=== PATIENT | male | born 1970 | race Hispanic/Latino ===

== ENCOUNTER → 2018-06-28 | Day surgery (SDC) | payer BC ==
[2018-06-17 11:15] LABS: BASOPHILS % 0.8 % (0.0-1.0); EOSINOPHILS # (AUTO) 0.2 (0.0-0.4); EOSINOPHILS % 3.6 % (0.0-6.0); HEMOGLOBIN 13.2 g/dL (14.0-18.0); LYMPHOCYTES # (AUTO) 1.6 (1.0-3.2); LYMPHOCYTES % 31.3 % (18.0-39.1); MEAN CORPUSCULAR HEMOGLOBIN 24.6 pg (28-32); MEAN CORPUSCULAR HGB CONC 31.4 g/dL (31-35); MEAN CORPUSCULAR VOLUME 78.4 fL (81-99); MONOCYTES # (AUTO) 0.4 (0.2-0.8); MONOCYTES % 8.2 % (4.4-11.3); NEUTROPHILS # (AUTO) 2.8 (2.1-6.9); NEUTROPHILS % 55.7 % (38.7-80.0); PLATELET COUNT 200 x10e3/uL (140-360); RED BLOOD COUNT 5.36 x10e6/uL (4.3-5.7)
[2018-06-17 11:29] LABS: ANION GAP 15.1 mmol/L (8-16); BLOOD UREA NITROGEN 14 mg/dL (7-26); BUN/CREATININE RATIO 16 (6-25); CALCIUM 9.1 mg/dL (8.4-10.2); CARBON DIOXIDE 27 mmol/L (22-29); CHLORIDE 104 mmol/L (98-107); CREATININE, SERUM 0.85 mg/dL (0.72-1.25); EST GLOMERULAR FILTRATION RATE > 60 ML/MIN (60-); GLUCOSE 139 mg/dL (74-118); POTASSIUM 4.1 mmol/L (3.5-5.1); SODIUM 142 mmol/L (136-145)
[~2018-06-28] MED LIST: BUPIVACAINE 0.25%/EPI 30ML SDV INJ ONE; COZAAR100 MG PO; CRESTOR PO; CRESTOR10 MG PO; FENTANYL CITRATE/PF 100MCG/2 ML INJ ONE; HYDROCODONE/APAP 7.5MG-325MG 1 EA TAB ONE; LIDOCAINE HCL 2% LOCAL INJ 5 ML SDV VIAL INJ ONE; METFORMIN HCL500 MG PO; METFORMIN HCL850 MG PO; METFORMIN PO; MIDAZOLAM HCL 2 MG/2 ML VIAL ONE; NEOSTIGMINE 1 MG/ML 10ML VIAL ONE; NORCO 10MG-325MG1 EA PO; ONDANSETRON HCL INJ 2 MG/ML VIAL ONE; PANTOPRAZOLE PO; PANTOPRAZOLE SO40 MG PO; PROPOFOL IV EMULSION 10 MG/ML 20 ML VIAL ONE; ROCURONIUM BROMIDE 10 MG/ML 5ML VIAL ONE; SEVOFLURANE INHAL SOLN 250 ML PEN BTL ONE; SOMA350 MG PO; TRICOR PO; TRICOR145 MG PO
[2018-06-28 11:20] VITALS: BP 140/72
--- NOTE | 2018-06-28 13:39 | Operative Report ---
DATE OF PROCEDURE: June 28, 2018 PREOPERATIVE DIAGNOSIS: Large mass of the left occipital scalp area. POSTOPERATIVE DIAGNOSIS: Large mass of the left occipital scalp area. OPERATION PERFORMED: Resection of large mass of the left occipital area. ANESTHESIA: General. COMPLICATIONS: None. ESTIMATED BLOOD LOSS: 25 mL. DESCRIPTION OF PROCEDURE: With the patient lying in bed in the lateral position under good general endotracheal anesthesia, the scalp and neck were prepped with Hibiclens solution and draped in the usual manner. The area overlying the large mass in the left occipital area was then infiltrated with 0.25% Marcaine with epinephrine and incision was made. It was carried down through the skin into the subcutaneous tissue and immediately poorly encapsulated mass was encountered that extended all the way down to the muscle and in some areas, was actually stuck to the occipital bone. The mass was slowly and carefully from the subcutaneous tissue and then slowly and carefully from the muscle and bone and totally and completely removed. Hemostasis was ascertained. The mass was at least 4 x 4 cm in size. The whole area was thoroughly irrigated. Perfect hemostasis was then ascertained. The subcutaneous tissue was then reapproximated with interrupted sutures of 3-0 Vicryl and the skin was closed with interrupted vertical mattress sutures of 3-0 silk. A dressing was applied. The sponge, lap and needle count was correct. The patient tolerated the procedure well and returned to the recovery room in stable condition. Job#: [id number] GHASSAN
--- OUTSIDE RECORDS SUMMARY | 2018-07-02 13:16 | XMS REPORT | Summary of Care ---
Author Author [facility] [place] Organization [facility] [place] Address Unknown Phone Unavailable Encounter HQ Trentntr_maria esther(FIN) [id number] Date(s): 07/27/17 - 07/27/17 [facility] [place] [address] [place] [address] [phone] Discharge Disposition: Home or Self Care Attending Physician: Hanny Jones MD Vital Signs No data available for this section Problem List Condition Effective Dates Status Health Status Informant Laceration of Active spleen(Confirmed) Multiple fractures Active of ribs(Confirmed) Pain(Confirmed) Active Allergies, Adverse Reactions, Alerts Substance Reaction Severity Status NKDA Active Medications No data available for this section Results No data available for this section Immunizations Given and Recorded Vaccine Date Status Refusal Reason tetanus-diphtheria toxoids 10/15/10 Given Procedures No data available for this section Social History No data available for this section Assessment and Plan No data available for this section
--- OUTSIDE RECORDS SUMMARY | 2018-07-02 13:16 | XMS REPORT | CCD ---
Author Author Auto Generated Organization [facility] [address] Outpatient [facility] Address Unknown Phone Unavailable Care Team Providers Care Mess Attendant Crew Name Role Phone KarenHanny pradhan CP Allergies, Adverse Reactions, Alerts Substance Reaction Status NKDA Active Problem List Condition Effective Dates Status Hematuria < 10/21/2010 Inactive Laceration of spleen Active Multiple fractures of ribs Active Pain Active Medications Medication Instructions Start Date End Date Status tetanus-diphtheria 0.5 ml, Route: IM, Drug Form: INJ, 10/15/2010 10/15/2010 Completed toxoids adult ONCE, STAT, Start date: 10/15/10 intramuscular 19:32:00, Stop date: 10/15/10 suspension 19:32:00 Immunizations Vaccine Date Status tetanus-diphtheria toxoids 10/15/2010 Auth (Verified)
--- OUTSIDE RECORDS SUMMARY | 2018-07-02 13:16 | XMS REPORT | Continuity of Care Document ---
Author Author Margarita elías [facility] Address Unknown Phone Unavailable Problems Problem Status Onset Date Classification Date Reported Comments Source E78.2 - MIXED HYPERLIPIDEMIA Active 07/26/2017 [facility] [place] 784.0 - HEADACHE 401.9 - HYPERTENSION NO Active 10/01/2012 [facility] [place] Laceration of spleen Active Problem 07/30/2017 [facility] [place] Multiple fractures of ribs Active Problem 07/30/2017 [facility] [place] Pain Active Problem 07/30/2017 [facility] [place] Hematuria Inactive Problem 10/09/2012 [facility] [place] Laceration of spleen Active Problem 10/09/2012 [facility] [place] Multiple fractures of ribs Active Problem 10/09/2012 [facility] [place] Pain Active Problem 10/09/2012 [facility] [place] Medications Medication Details Route Status Patient Instructions Ordering Provider Order Date Source tetanus-diphtheria toxoids adult intramuscular suspension 0.5 ml, Route: IM, Drug Form: INJ, ONCE, STAT, Start date: 10/15/10 19:32:00, Stop date: 10/15/10 19:32:00 IM No Longer Active Cristia 10/16/2010 [facility] [place] Allergies, Adverse Reactions, Alerts Substance Category Reaction Severity Reaction type Status Date Reported Comments Source Immunizations Immunization Date Given Site Status Last Updated Comments Source tetanus-diphtheria toxoids 10/16/2010 Right Deltoid completed Alvaro [facility] [place] tetanus-diphtheria toxoids 10/16/2010 Right Deltoid completed Alvaro [facility] [place] tetanus-diphtheria toxoids 10/16/2010 completed Alvaro [facility] [place] Results Order Name Results Value Reference Range Date Interpretation Comments Source Abdomen complete US Abdomen complete US Exam: Abdominal Ultrasound Reason for Exam: R10.84 Generalized abdominal pain - R10.84 Generalized abdominal pain. Abnormal blood work. Comparison Exam: Ultrasound 03/22/[address] scan 10/19/2010 Discussion: Multiple axial and sagittal images were obtained of the abdomen. Liver is slightly enlarged. It is of increased echogenicity suggestive of diffuse fatty infiltration. No focal hepatic masses identified. No intrahepatic or extrahepatic biliary duct dilation, with the common bile duct measuring 0.3 cm. No gallstones or gallbladder sludge. No gallbladder wall thickening or pericholecystic fluid. Sonographic Mendoza's sign is negative. The visualized portions of the pancreatic head and proximal body are within normal limits. The spleen is of normal echogenicity measuring 8.8 cm in length. The visualized portions of the upper abdominal aorta and IVC are unremarkable. No evidence seen for ascites. The right kidney measures 10.9 x 6.2 x 4.9 cm. It is of unremarkable echogenicity without evidence for focal masses, hydronephrosis, or shadowing renal calculi. The left kidney measures 12.0 x 5.7 x 4.7 cm. It is of unremarkable echogenicity without evidence for focal masses, hydronephrosis, or shadowing renal calculi. Impression: 1. Liver is slightly enlarged. It is of increased echogenicity suggestive of diffuse fatty infiltration. The gallbladder and biliary ductal system are unremarkable. 07/27/2017 - - Read by: Kyler Holt MD Dictated Date/time: 07/27/17 10:48 Electronically Signed by: Kyler Holt MD 07/27/17 11:10 FINAL REPORT MIKA Padilla Spine cervical wo contrast MRI Spine cervical wo contrast MRI CERVICAL SPINE MRI CLINICAL HISTORY: Neck pain, left upper extremity paresthesia, status post ACDF, and displacement of cervical intervertebral disc. TECHNIQUE: Multiplanar, multisequence MR images were acquired without IV contrast. COMPARISON IMAGIN10/15/2010 CT. FINDINGS: The patient is status post C5-C6 ACDF without obvious complication. Complete intervertebral fusion is again noted. Vertebral body height, alignment, and marrow signal are within normal limits. All intervertebral discs are at least mildly desiccated. Spinal cord signal appears grossly preserved. Location- specific findings are as follows: C2-C3: Small broad-based disc bulge with bilateral facet hypertrophy (moderate on the left and mild to moderate on the right). The left neural foramina is severely narrowed, while the right neural foramina is mildly narrowed. Canal is patent. C3-C4: Moderate-sized broad-based posterior disc osteophyte complex, mild bilateral uncovertebral joint hypertrophy, and moderate bilateral facet hypertrophy. Both neural foramina are moderate to severely narrowed, left greater than right. Maximal AP dimension of the spinal canal is 9 mm. C4-C5: Moderate-sized broad-based posterior disc osteophyte complex, moderate bilateral uncovertebral joint hypertrophy, severe left facet hypertrophy, and mild right facet hypertrophy. The left neural foramina is severely narrowed, and the right neural foramina is moderately narrowed. The posterior disc osteophyte complex contacts but does not flatten the spinal cord. Maximal AP dimension of the spinal canal is 8 to 9 mm. C5-C6: Bony fusion at the left uncovertebral joint moderately narrows the left neural foramina. Canal and right neural foramina are patent. C6-C7: Loss of disc height, severe bilateral uncovertebral joint hypertrophy, large broad-based disc bulge, and mild bilateral facet hypertrophy. Maximal AP dimension of the spinal canal is approximately 9 mm. The left neural foramina is severely narrowed, and the right neural foramina is moderately narrowed. C7-T1: Mild bilateral facet hypertrophy. Canal and neural foramina are patent. IMPRESSION: 1. Status post ACDF. 2. Moderate multilevel degenerative changes, most prominent at C4-C5 and C6-C7. 3. Multilevel canal and neural foraminal stenosis, detailed above. 04/28/2014 - - Read by: Jung Hagan MD Dictated Date/time: 04/28/14 12:17 Electronically Signed by: Jung Hagan MD 04/28/14 12:26 FINAL REPORT [facility] [place] Vital Signs Vital Sign Value Date Comments Source Encounters Location Location Details Encounter Type Encounter Number Reason For Visit Attending Provider ADM Date DC Date Status Source OD [id number] 784.0 - HEADACHE 401.9 - HYPERTENSION NO 272.0 - PURE H GUILHERME JULES 10/07/2012 Active [facility] [place] [facility] [place] [facility] [id number] Guilherme Jules 04/28/2014 04/29/2014 [facility] [place] [facility] [place] [facility] [id number] Guilherme Jules 07/27/2017 07/28/2017 [facility] [place] Procedures Procedure Code Date Perfomer Comments Source
--- OUTSIDE RECORDS SUMMARY | 2018-07-02 13:16 | XMS REPORT | Summary of Care ---
Author Organization Unknown Address Unknown Phone Unavailable Encounter HQ Encntr_karieubaldo(FIN) [id number] Date(s): 04/28/14 - 04/28/14 [facility] [address] [address] [place] Discharge Disposition: Home Physician Attending: Hanny Jones MD Reason for Visit 795.05 - CERVICAL (HPV) Problem List Condition Effective Dates Status Health Status Informant Laceration of Active spleen(Confirmed) Multiple fractures Active of ribs(Confirmed) Pain(Confirmed) Active Allergies, Adverse Reactions, Alerts Substance Reaction Severity Status NKDA Active Medications No data available for this section Medications Administered During Your Visit No data available for this section Immunizations Vaccine Date Refusal Reason tetanus-diphtheria toxoids 10/15/10
== END | disposition home or self-care (01) ==
LOC: OR 06:15
PROVIDERS: ATTEND Surgery
DX: D17.79 Benign lipomatous neoplasm of other sites (principal); E11.9 Type 2 diabetes mellitus without complications; I10 Essential (primary) hypertension; K21.9 Gastro-esophageal reflux disease without esophagitis; Z01.810 Encounter for preprocedural cardiovascular examination; Z01.812 Encounter for preprocedural laboratory examination; Z79.84 Long term (current) use of oral hypoglycemic drugs
CPT/HCPCS: 21014; 36415 ×2; 80048; 82948; 85025; 88304; 93005; J2001; J2250; J2405; J2710

== ENCOUNTER → 2019-03-13 | Day surgery (SDC) | payer BC ==
[~2019-03-13] MED LIST changes: -BUPIVACAINE 0.25%/EPI 30ML SDV INJ ONE; -HYDROCODONE/APAP 7.5MG-325MG 1 EA TAB ONE; +IOPAMIDOL 200 MG/ML 20 ML VIAL IT ONE; +LIDOCAINE HCL 1% 30ML-PF VIAL ONE; -NEOSTIGMINE 1 MG/ML 10ML VIAL ONE; -ONDANSETRON HCL INJ 2 MG/ML VIAL ONE; -ROCURONIUM BROMIDE 10 MG/ML 5ML VIAL ONE; -SEVOFLURANE INHAL SOLN 250 ML PEN BTL ONE; +TRIAMCINOLONE ACET 40 MG/ML VIAL ONE
[2019-03-13 07:25] VITALS: BP 138/94
== END | disposition home or self-care (01) ==
LOC: OR 05:00
PROVIDERS: ATTEND Physical Medicine & Rehabilitation Pain Medicine
DX: M47.896 Other spondylosis, lumbar region (principal); Z98.1 Arthrodesis status; I10 Essential (primary) hypertension; E78.5 Hyperlipidemia, unspecified; E78.00 Pure hypercholesterolemia, unspecified; E11.9 Type 2 diabetes mellitus without complications; K21.9 Gastro-esophageal reflux disease without esophagitis; Z01.810 Encounter for preprocedural cardiovascular examination; Z79.84 Long term (current) use of oral hypoglycemic drugs
CPT/HCPCS: 36415; 64493; 64494; 64495; 82948; 93005; J2001 ×2; J2250; J2704; J3010; J3301; Q9967; 77003

== ENCOUNTER → 2019-05-22 | Day surgery (SDC) | payer BC ==
[~2019-05-22] MED LIST changes: +DEXAMETHASONE SOD PHOS 10 MG/1 ML VIAL ONE; -TRIAMCINOLONE ACET 40 MG/ML VIAL ONE
[2019-05-22 09:00] VITALS: BP 116/76
== END | disposition home or self-care (01) ==
LOC: OR 06:22
PROVIDERS: ATTEND Physical Medicine & Rehabilitation Pain Medicine
DX: M54.16 Radiculopathy, lumbar region (principal); M47.896 Other spondylosis, lumbar region; M79.18 Myalgia, other site; Z98.1 Arthrodesis status; R93.7 Abnormal findings on diagnostic imaging of other parts of musculoskeletal system; I10 Essential (primary) hypertension; E78.5 Hyperlipidemia, unspecified; E11.9 Type 2 diabetes mellitus without complications; K21.9 Gastro-esophageal reflux disease without esophagitis; Z79.84 Long term (current) use of oral hypoglycemic drugs
CPT/HCPCS: 36415; 64483; 64484 ×2; 82948; J1100; J2001 ×2; J2250; J2704; J3010; Q9967; 77003

== ENCOUNTER → 2020-10-14 | Day surgery (SDC) | payer BC ==
[~2020-10-14] MED LIST changes: +BUPIVACAINE 0.25% 30ML SDV ONE; +CYCLOBENZAPRINE10 MG PO; +IRBESARTAN150 MG PO; +JANUVIA50 MG PO; -LIDOCAINE HCL 2% LOCAL INJ 5 ML SDV VIAL INJ ONE; +MOBIC7.5 MG PO; +OMEPRAZOLE40 MG PO; +TYLENOL # 31 EA PO
[2020-10-14 07:44] VITALS: BP 137/94
== END | disposition home or self-care (01) ==
LOC: OR 05:20
PROVIDERS: ATTEND Physical Medicine & Rehabilitation Pain Medicine
DX: M54.16 Radiculopathy, lumbar region (principal); M47.812 Spondylosis without myelopathy or radiculopathy, cervical region; M70.61 Trochanteric bursitis, right hip; M46.1 Sacroiliitis, not elsewhere classified; Z98.1 Arthrodesis status; E78.00 Pure hypercholesterolemia, unspecified; I10 Essential (primary) hypertension; E11.9 Type 2 diabetes mellitus without complications; K21.9 Gastro-esophageal reflux disease without esophagitis; K44.9 Diaphragmatic hernia without obstruction or gangrene; Z01.810 Encounter for preprocedural cardiovascular examination; Z79.84 Long term (current) use of oral hypoglycemic drugs; Z86.16 Personal history of COVID-19
CPT/HCPCS: 36415; 64483; 64484 ×2; 82948; 93005; J1100; J2001; J2704; Q9967; 77003; J2250; J3010

== ENCOUNTER → 2020-10-28 | Day surgery (SDC) | payer BC ==
[~2020-10-28] MED LIST changes: -BUPIVACAINE 0.25% 30ML SDV ONE
[2020-10-28 07:20] VITALS: BP 124/82
== END | disposition home or self-care (01) ==
LOC: OR 05:23
PROVIDERS: ATTEND Physical Medicine & Rehabilitation Pain Medicine
DX: M54.16 Radiculopathy, lumbar region (principal); M46.1 Sacroiliitis, not elsewhere classified; M70.61 Trochanteric bursitis, right hip; Z98.1 Arthrodesis status; I10 Essential (primary) hypertension; E11.9 Type 2 diabetes mellitus without complications; E78.00 Pure hypercholesterolemia, unspecified; K21.9 Gastro-esophageal reflux disease without esophagitis; Z86.16 Personal history of COVID-19
CPT/HCPCS: 36415; 64483; 64484; 82948; J1100; J2001; J2250; J2704; J3010; Q9967; 77003

== ENCOUNTER → 2020-12-09 | Day surgery (SDC) | payer BC ==
[~2020-12-09] MED LIST changes: +LIDOCAINE HCL 2% LOCAL INJ 5 ML SDV VIAL INJ ONE
[2020-12-09 06:40] VITALS: BP 129/88
== END | disposition home or self-care (01) ==
LOC: OR 05:13
PROVIDERS: ATTEND Physical Medicine & Rehabilitation Pain Medicine
DX: M54.16 Radiculopathy, lumbar region (principal); M46.1 Sacroiliitis, not elsewhere classified; M47.812 Spondylosis without myelopathy or radiculopathy, cervical region; M70.60 Trochanteric bursitis, unspecified hip; I10 Essential (primary) hypertension; E11.9 Type 2 diabetes mellitus without complications; E78.00 Pure hypercholesterolemia, unspecified; Z11.52 Encounter for screening for COVID-19; Z11.0 Encounter for screening for intestinal infectious diseases; Z79.84 Long term (current) use of oral hypoglycemic drugs; Z86.16 Personal history of COVID-19
CPT/HCPCS: 36415; 64483; 64484; 82948; J1100; J2001 ×2; J2250; J2704; J3010; Q9967; U0002; 77003

== ENCOUNTER → 2022-02-16 | Day surgery (SDC) | payer BC ==
[~2022-02-16] MED LIST changes: +ADVIL100 M1 PO; -DEXAMETHASONE SOD PHOS 10 MG/1 ML VIAL ONE; +MELOXICAM7.5 MG PO; +POVIDONE IODINE 0.05% 0.05 % ML PO ONE; +TRIAMCINOLONE ACET 40 MG/ML VIAL ONE
[2022-02-16 07:40] VITALS: BP 118/74
== END | disposition home or self-care (01) ==
LOC: OR 06:07
PROVIDERS: ATTEND Physical Medicine & Rehabilitation Pain Medicine
DX: M46.1 Sacroiliitis, not elsewhere classified (principal); Z98.1 Arthrodesis status; M47.896 Other spondylosis, lumbar region; M54.16 Radiculopathy, lumbar region; M70.60 Trochanteric bursitis, unspecified hip; M47.812 Spondylosis without myelopathy or radiculopathy, cervical region; E11.9 Type 2 diabetes mellitus without complications; I10 Essential (primary) hypertension; E78.5 Hyperlipidemia, unspecified; K21.9 Gastro-esophageal reflux disease without esophagitis; K44.9 Diaphragmatic hernia without obstruction or gangrene; Z01.810 Encounter for preprocedural cardiovascular examination; Z01.812 Encounter for preprocedural laboratory examination; Z20.822 Contact with and (suspected) exposure to COVID-19; Z79.84 Long term (current) use of oral hypoglycemic drugs; Z79.899 Other long term (current) drug therapy
CPT/HCPCS: 36415; 82948; 93005; G0260; J2001 ×2; J2250; J2704; J3010; J3301; Q9967; U0002; 77003

== ENCOUNTER 2022-07-17 11:36 | Observation (INO) | payer BC ==
[~2022-07-17] VITALS: Ht 170.2 cm; Wt 84.4 kg
[~2022-07-17 11:36] MED LIST changes: -FENTANYL CITRATE/PF 100MCG/2 ML INJ ONE; -IOPAMIDOL 200 MG/ML 20 ML VIAL IT ONE; -LIDOCAINE HCL 1% 30ML-PF VIAL ONE; -LIDOCAINE HCL 2% LOCAL INJ 5 ML SDV VIAL INJ ONE; -MIDAZOLAM HCL 2 MG/2 ML VIAL ONE; -POVIDONE IODINE 0.05% 0.05 % ML PO ONE; -PROPOFOL IV EMULSION 10 MG/ML 20 ML VIAL ONE; -TRIAMCINOLONE ACET 40 MG/ML VIAL ONE
[2022-07-17] MEDS ORDERED: ASPIRIN 325 MG TAB PO ONE (12:15)
[2022-07-17 12:26] LABS: BASOPHILS # (AUTO) 0.1 (0.0-0.1); EOSINOPHILS # (AUTO) 0.1 (0.0-0.4); EOSINOPHILS % 0.9 % (0.0-6.0); HEMATOCRIT 38.6 % (38.2-49.6); HEMOGLOBIN 11.1 g/dL (14.0-18.0); LYMPHOCYTES # (AUTO) 1.7 (1.0-3.2); LYMPHOCYTES % 22.1 % (18.0-39.1); MEAN CORPUSCULAR HEMOGLOBIN 21.3 pg (28-32); MEAN CORPUSCULAR HGB CONC 28.8 g/dL (31-35); MEAN CORPUSCULAR VOLUME 74.2 fL (81-99); MONOCYTES # (AUTO) 0.7 (0.2-0.8); MONOCYTES % 9.3 % (4.4-11.3); NEUTROPHILS # (AUTO) 5.2 (2.1-6.9); NEUTROPHILS % 66.2 % (38.7-80.0); PLATELET COUNT 191 x10e3/uL (140-360); RED CELL DISTRIBUTION WIDTH 18.3 % (11.7-14.4)
[2022-07-17 12:51] LABS: ALBUMIN 4.5 g/dL (3.5-5.0); ALBUMIN/GLOBULIN RATIO 1.3 (0.8-2.0); ANION GAP 18.9 mmol/L (8-16); CALCIUM 9.4 mg/dL (8.4-10.2); CREATININE, SERUM 0.94 mg/dL (0.72-1.25); POTASSIUM 3.9 mmol/L (3.5-5.1)
[2022-07-17] MEDS ORDERED: SODIUM CHLORIDE 0.9% 1000ML 1,000 ML IV STA (13:20)
[2022-07-17] MEDS ORDERED: IOPAMIDOL 370 MG/ML 100 ML INFUS..BTL INJ ONE (14:38)
[2022-07-17] MEDS ORDERED: ONDANSETRON HCL INJ 2MG/ML 2ML 2 MG/ML VIAL IV PRN ×2 (14:45→20:15)
[2022-07-17 15:03] LABS: CREATINE KINASE MB 2.8 ng/mL (0-5.0)
[2022-07-17] MEDS: Morphine 2mg Syringe 2 MG/ML SYR IV PRN (20:18)
[2022-07-17 20:55] VITALS: BP 162/86
[2022-07-17 21:00] VITALS: BP 162/86
[2022-07-17 22:00] VITALS: BP 162/86
[2022-07-17] MEDS ORDERED: PROTONIX20 MG PO (22:46)
[2022-07-17] MEDS ORDERED: HYDROCHLOROTHIA25 MG PO (22:46)
[2022-07-17] MEDS ORDERED: TIZANIDINE HCL4 MG PO (22:46)
[2022-07-18] VITALS: BP 147/78
[2022-07-18] MEDS: Morphine 2mg Syringe 2 MG/ML SYR IV PRN ×2 (00:03→05:57)
[2022-07-18 04:00] VITALS: BP 151/86
[2022-07-18 06:41] LABS: CREATINE KINASE MB 1.6 ng/mL (0-5.0)
[2022-07-18 08:47] VITALS: BP 142/93
[2022-07-18] MEDS: ASPIRIN 325 MG TAB EC PO SCH (09:02)
[2022-07-18] MEDS ORDERED: ASPIRIN ENTERI325 MG PO (11:58)
[2022-07-18 12:40] VITALS: BP 141/94
[2022-07-18] MEDS ORDERED: ONDANSETRON HCL 4 MG ORAL DISINTEGRATING TAB PO PRN (12:45)
== END 2022-07-18 12:43 | disposition home or self-care (01) ==
LOC: ER 12:00 → ERHOLD 14:37 → MED/SURG 21:08
PROVIDERS: ADMIT Internal Medicine; ATTEND Internal Medicine
DX: R07.89 Other chest pain (principal); M62.838 Other muscle spasm; I10 Essential (primary) hypertension; K21.9 Gastro-esophageal reflux disease without esophagitis; E78.5 Hyperlipidemia, unspecified; E11.69 Type 2 diabetes mellitus with other specified complication; G25.81 Restless legs syndrome; F10.90 Alcohol use, unspecified, uncomplicated; J98.11 Atelectasis; R91.8 Other nonspecific abnormal finding of lung field; Z83.3 Family history of diabetes mellitus; Z80.1 Family history of malignant neoplasm of trachea, bronchus and lung; Z82.61 Family history of arthritis; Z81.2 Family history of tobacco abuse and dependence; Z20.822 Contact with and (suspected) exposure to COVID-19; Z79.82 Long term (current) use of aspirin
CPT/HCPCS: 0223U; 36415 ×2; 71045; 71260; 80053; 82550 ×2; 82553 ×2; 82948 ×2; 83880; 84484 ×2; 85025; 85379; 93005; 99284; G0378 ×2; J2270 ×2; J2405; J7030; Q9967

== ENCOUNTER 2022-08-19 22:12 | Emergency (ER) | payer BC ==
[~2022-08-19] VITALS: Ht 170.2 cm; Wt 84.4 kg
[~2022-08-19 22:12] MED LIST changes: +ASPIRIN ENTERI325 MG PO; +HYDROCHLOROTHIA25 MG PO; +PROTONIX20 MG PO; +TIZANIDINE HCL4 MG PO
[2022-08-19] MEDS ORDERED: KETOROLAC TROMETHAMINE 30 MG/ML VIAL IV STA (22:22)
[2022-08-19] MEDS ORDERED: METHOCARBAMOL 500 MG TAB PO ONE (22:30)
[2022-08-19] MEDS ORDERED: GABAPENTIN 300 MG CAP PO ONE (22:30)
[2022-08-19 22:53] LABS: BASOPHILS % 0.3 % (0.0-1.0); EOSINOPHILS # (AUTO) 0.1 (0.0-0.4); HEMATOCRIT 38.5 % (38.2-49.6); HEMOGLOBIN 11.5 g/dL (14.0-18.0); LYMPHOCYTES # (AUTO) 2.2 (1.0-3.2); LYMPHOCYTES % 32.8 % (18.0-39.1); MEAN CORPUSCULAR HEMOGLOBIN 23.6 pg (28-32); MEAN CORPUSCULAR HGB CONC 29.9 g/dL (31-35); MEAN CORPUSCULAR VOLUME 79.1 fL (81-99); MONOCYTES # (AUTO) 0.7 (0.2-0.8); MONOCYTES % 9.7 % (4.4-11.3); NEUTROPHILS # (AUTO) 3.7 (2.1-6.9); NEUTROPHILS % 54.2 % (38.7-80.0); PLATELET COUNT 167 x10e3/uL (140-360); RED BLOOD COUNT 4.87 x10e6/uL (4.3-5.7); RED CELL DISTRIBUTION WIDTH 22.3 % (11.7-14.4)
[2022-08-19] MEDS ORDERED: KETOROLAC TROMETHAMINE 30 MG/ML VIAL ONE (22:53)
[2022-08-19] MEDS ORDERED: METHOCARBAMOL 750 MG TAB ONE (22:53)
[2022-08-19] MEDS ORDERED: GABAPENTIN 300 MG CAP ONE (22:53)
[2022-08-19] MEDS ORDERED: METHOCARBAMOL 750 MG TAB PO ONE (23:00)
[2022-08-19 23:12] LABS: ALBUMIN 3.9 g/dL (3.5-5.0); ALBUMIN/GLOBULIN RATIO 1.4 (0.8-2.0); ANION GAP 15.7 mmol/L (8-16); CALCIUM 8.9 mg/dL (8.4-10.2); CREATININE, SERUM 0.8 mg/dL (0.72-1.25); POTASSIUM 3.7 mmol/L (3.5-5.1)
[2022-08-19] MEDS ORDERED: GABAPENTIN300 MG PO (23:39)
== END 2022-08-19 23:51 | disposition home or self-care (01) ==
LOC: ER 22:14
DX: R07.89 Other chest pain (principal); G89.29 Other chronic pain; I10 Essential (primary) hypertension; E11.9 Type 2 diabetes mellitus without complications; E78.5 Hyperlipidemia, unspecified; K21.9 Gastro-esophageal reflux disease without esophagitis; Z79.82 Long term (current) use of aspirin; Z79.84 Long term (current) use of oral hypoglycemic drugs; Z79.899 Other long term (current) drug therapy
CPT/HCPCS: 36415; 71046; 80053; 85025; 99284; J1885

== ENCOUNTER 2023-07-23 04:06 | Emergency (ER) | payer BC ==
[~2023-07-23] VITALS: Ht 170.2 cm; Wt 84.4 kg
[~2023-07-23 04:06] MED LIST changes: +GABAPENTIN300 MG PO
[2023-07-23] MEDS ORDERED: ONDANSETRON HCL INJ 2MG/ML 2ML 2 MG/ML VIAL IV STA (04:28)
[2023-07-23] MEDS ORDERED: KETOROLAC TROMETHAMINE 30 MG/ML VIAL IV STA (04:28)
[2023-07-23] MEDS ORDERED: SODIUM CHLORIDE 0.9% 1000ML 1,000 ML IV ONE (04:30)
[2023-07-23] MEDS ORDERED: KETOROLAC TROMETHAMINE 30 MG/ML VIAL ONE (04:31)
[2023-07-23] MEDS ORDERED: SODIUM CHLORIDE 0.9% 1000ML 1,000 ML ONE (04:31)
[2023-07-23 04:42] LABS: BASOPHILS # (AUTO) 0.1 (0.0-0.1); EOSINOPHILS # (AUTO) 0.1 (0.0-0.4); EOSINOPHILS % 1.4 % (0.0-6.0); HEMOGLOBIN 14.8 g/dL (14.0-18.0); LYMPHOCYTES # (AUTO) 2.8 (1.0-3.2); LYMPHOCYTES % 38.4 % (18.0-39.1); MEAN CORPUSCULAR HEMOGLOBIN 26.3 pg (28-32); MEAN CORPUSCULAR HGB CONC 33.6 g/dL (31-35); MEAN CORPUSCULAR VOLUME 78.2 fL (81-99); MONOCYTES # (AUTO) 0.6 (0.2-0.8); MONOCYTES % 8.3 % (4.4-11.3); NEUTROPHILS # (AUTO) 3.7 (2.1-6.9); NEUTROPHILS % 50.6 % (38.7-80.0); PLATELET COUNT 193 x10e3/uL (140-360); RED BLOOD COUNT 5.63 x10e6/uL (4.3-5.7); RED CELL DISTRIBUTION WIDTH 13.6 % (11.7-14.4); WHITE BLOOD COUNT 7.24 x10e3/uL (4.8-10.8)
[2023-07-23 04:58] LABS: ANION GAP 16.5 mmol/L (8-16); CALCIUM 9.6 mg/dL (8.4-10.2); CREATININE, SERUM 0.87 mg/dL (0.72-1.25); POTASSIUM 3.5 mmol/L (3.5-5.1)
[2023-07-23] MEDS ORDERED: ORPHENADRINE C100 MG PO (05:43)
[2023-07-23] MEDS ORDERED: NAPROSYN500 MG PO (05:43)
[2023-07-23 05:53] VITALS: BP 147/87; O2SAT 100
[2023-07-23 06:21] LABS: CLARITY,URINE CLEAR (CLEAR); COLOR,URINE YELLOW (YELLOW); LEUKOCYTE ESTERASE ,URINE NEGATIVE (NEGATIVE); NITRITE,URINE NEGATIVE (NEGATIVE)
[2023-07-23 06:22] LABS: KETONES,URINE NEGATIVE (NEGATIVE); PROTEIN,URINE DIPSTICK NEGATIVE (NEGATIVE); URINE UROBILINOGEN 0.2 mg/dL (0.2 - 1)
[2023-07-23 06:48] LABS: BACTERIA,URINE RARE /HPF; EPITHELIAL CELLS,URINE RARE /LPF
[2023-07-23 06:49] LABS: RBC,URINE 0-5 /HPF (0-5); WBC,URINE (MAN) 0-5 /HPF (0-5)
== END 2023-07-23 05:56 | disposition home or self-care (01) ==
LOC: ER 04:14
DX: M54.50 Low back pain, unspecified (principal); G89.29 Other chronic pain; K76.0 Fatty (change of) liver, not elsewhere classified
CPT/HCPCS: 36415; 74176; 80048; 81001; 85025; 99284; J1885; J2405; J7030

== ENCOUNTER 2024-12-09 03:20 | Emergency (ER) | payer BC ==
[~2024-12-09] VITALS: Ht 170.2 cm; Wt 83.9 kg
[~2024-12-09 03:20] MED LIST changes: +NAPROSYN500 MG PO; +ORPHENADRINE C100 MG PO
[2024-12-09 03:26] VITALS: TEMP 98.9
[2024-12-09] MEDS: KETOROLAC TROMETHAMINE 60 MG/2 ML VIAL IM STA (03:43)
[2024-12-09 04:18] LABS: CLARITY,URINE CLEAR (CLEAR); COLOR,URINE YELLOW (YELLOW)
[2024-12-09 04:19] LABS: BILIRUBIN,URINE NEGATIVE (NEGATIVE); GLUCOSE, URINE >=1000 (NEGATIVE); KETONES,URINE NEGATIVE (NEGATIVE); LEUKOCYTE ESTERASE ,URINE NEGATIVE (NEGATIVE); NITRITE,URINE NEGATIVE (NEGATIVE); PH,URINE 5.5 (5 - 7); PROTEIN,URINE DIPSTICK NEGATIVE (NEGATIVE); URINE UROBILINOGEN 0.2 mg/dL (0.2 - 1)
[2024-12-09 04:43] LABS: WBC,URINE (MAN) 0-5 /HPF (0-5)
[2024-12-09 04:44] LABS: BACTERIA,URINE FEW /HPF; EPITHELIAL CELLS,URINE RARE /LPF
[2024-12-09 05:01] VITALS: PULSE 105; RESP 20; O2SAT 95
[2024-12-09] MEDS: Morphine 4mg INJECTION 4 MG/ML INJ IM STA (05:01)
[2024-12-09] MEDS ORDERED: ULTRAM 50MG50 MG PO (05:17)
[2024-12-09] MEDS ORDERED: FLOMAX0.4 MG PO (05:17)
[2024-12-09] MEDS ORDERED: ONDANSETRON ODT4 MG PO (05:17)
== END 2024-12-09 05:27 | disposition home or self-care (01) ==
LOC: ER 03:24
DX: M62.830 Muscle spasm of back (principal); R33.9 Retention of urine, unspecified; N40.0 Benign prostatic hyperplasia without lower urinary tract symptoms; I10 Essential (primary) hypertension; E11.9 Type 2 diabetes mellitus without complications; E78.5 Hyperlipidemia, unspecified; K21.9 Gastro-esophageal reflux disease without esophagitis; M54.9 Dorsalgia, unspecified; G89.29 Other chronic pain
CPT/HCPCS: 74176; 81001; 99283; J1885; J2270

== ENCOUNTER 2024-12-15 02:27 | Emergency (ER) | payer BC ==
[~2024-12-15] VITALS: Ht 170.2 cm; Wt 83.9 kg
[~2024-12-15 02:27] MED LIST changes: +FLOMAX0.4 MG PO; +ONDANSETRON ODT4 MG PO; +ULTRAM 50MG50 MG PO
[2024-12-15] MEDS ORDERED: IBUPROFEN 600 MG TAB ONE (02:49)
[2024-12-15] MEDS: IBUPROFEN 600 MG TAB PO STA (03:06)
[2024-12-15 03:19] LABS: CORONAVIRUS COVID-19 AG NEGATIVE (NEGATIVE); INFLUENZA A AG NEGATIVE (NEGATIVE); INFLUENZA B AG POSITIVE (NEGATIVE)
[2024-12-15 03:30] VITALS: PULSE 110; RESP 18; TEMP 99.9; O2SAT 97
== END 2024-12-15 03:35 | disposition home or self-care (01) ==
LOC: ER 02:31
DX: R50.9 Fever, unspecified (principal); J10.1 Influenza due to other identified influenza virus with other respiratory manifestations; R05.9 Cough, unspecified; I10 Essential (primary) hypertension; E11.9 Type 2 diabetes mellitus without complications; E78.5 Hyperlipidemia, unspecified; K21.9 Gastro-esophageal reflux disease without esophagitis; M54.9 Dorsalgia, unspecified; G89.29 Other chronic pain; Z11.52 Encounter for screening for COVID-19
CPT/HCPCS: 71045; 83518; 87070; 99283